=== PATIENT | female | born 1970 | race Caucasian/White ===

== ENCOUNTER 2021-08-22 17:42 | Emergency (ER) | payer MEDICAID ==
[~2021-08-22] VITALS: Ht 165.1 cm; Wt 108.9 kg
[2021-08-22 18:15] VITALS: BP_SYST 146
[2021-08-22] MEDS ORDERED: MORPHINE 4 MG INJ. 4 MG/ML VIAL IM ONE (19:15)
[2021-08-22] MEDS ORDERED: KETOROLAC TROMETHAMINE 30 MG VIAL IM ONE (19:15)
--- NOTE | 2021-08-22 21:00 | NUR ---
PT TRIAGED AND PLACED OUTSIDE IN WAITING ROOM.
--- NOTE | 2021-08-22 21:05 | NUR ---
DR. CRUZ TO SEE PT IN TRIAGE ROOM.
--- NOTE | 2021-08-22 21:06 | NUR ---
PATIENT AAOX4 BIB FAMILY IN C/O history of osteoarthritis and multiple surgeries presenting to the ED for evaluation of acute onset of persistent bilateral knee pain described as constant which is progressively worse in intensity, and is currently rated a 10 out of 10 in intensity and is greatly exacerbated with movement and bearing of weight as well as decreased range of motion secondary to pain. Patient reports taking ibuprofen, Aleve, Tylenol, and arthritic topical ointments with no relief.
[2021-08-22 21:11] VITALS: BP_SYST 146
--- NOTE | 2021-08-22 21:45 | NUR ---
Patient given written and verbal discharge instructions and verbalizes understanding. DR.MOORE MIREILLE GUERRA discussed with patient the results and treatment provided. Patient in stable condition. ID arm band removed. Patient educated on pain management and to follow up with PMD. Pain Scale 0/10 Opportunity for questions provided and answered. Medication side effect fact sheet provided.
== END 2021-08-22 21:11 | disposition home or self-care (01) ==
LOC: SED 17:42
DX: G89.29 Other chronic pain (principal); M25.561 Pain in right knee; M25.562 Pain in left knee
CPT/HCPCS: 73564; 96372; 99284; J1885; J2270

== ENCOUNTER 2023-03-07 22:33 | Emergency (ER) | payer MEDICAID ==
[~2023-03-07] VITALS: Ht 165.1 cm; Wt 117.9 kg
[2023-03-07 22:36] VITALS: BP_SYST 138
[2023-03-07] MEDS ORDERED: KETOROLAC TROMETHAMINE 60 MG/2 ML VIAL IM ONE (23:30)
[2023-03-08] MEDS ORDERED: MORPHINE 4 MG INJ. 4 MG/ML VIAL IM ONE
[2023-03-08] MEDS ORDERED: NAPR-690 PO (00:20)
[2023-03-08 00:33] VITALS: BP_SYST 122
== END 2023-03-08 00:33 | disposition home or self-care (01) ==
LOC: SED 22:33
DX: M13.811 Other specified arthritis, right shoulder (principal); M25.511 Pain in right shoulder; Z79.899 Other long term (current) drug therapy
CPT/HCPCS: 99284; 96372 ×2; J1885; J2270